=== PATIENT | male | born 1995 | race Caucasian/White ===

== ENCOUNTER 2018-11-09 12:57 | Emergency (ER) | payer BC ==
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
== END 2018-11-09 14:23 | disposition home or self-care (01) ==
LOC: DL.ED 12:57
DX: S01.01XA Laceration without foreign body of scalp, initial encounter (principal); Y04.0XXA Assault by unarmed brawl or fight, initial encounter
CPT/HCPCS: 12001; 99283

== ENCOUNTER 2019-06-27 08:48 | Emergency (ER) | payer BC ==
--- NOTE | 2019-06-27 09:13 | EDM.PDOC ---
ED HPI GENERAL MEDICAL PROBLEM - General Chief Complaint: Abdominal Pain Stated Complaint: ABDOMINAL PAIN Time Seen by Provider: 06/27/19 09:13 Source of Information: Reports: Patient, Old Records, RN, RN Notes Reviewed History Limitations: Reports: No Limitations - History of Present Illness INITIAL COMMENTS - FREE TEXT/NARRATIVE: Pt presents to ER from home by POV with 36 hours duration of generalized upper abdominal pain/pressure with nausea. Pt denies fever, chills, cough, sore throat , vomiting, diarrhea, constipation, dysuria, flank pain, or radiating pain. He admits to testicle pain yesterday, but much less today. Denies acid reflux history. Onset: Gradual Duration: Hour(s): (36) Location: Reports: Abdomen, Other (Testicles) Quality: Reports: Ache, Pressure Severity: Moderate Improves with: Reports: None Worsens with: Reports: None Associated Symptoms: Reports: No Other Symptoms Abdominal Pain Score (Numeric/FACES): 6 - Related Data Allergies Allergy/AdvReac Type Severity Reaction Status Date / Time No Known Allergies Allergy Verified 11/09/18 13:50 Home Meds: Home Meds . [No Known Home Meds] 11/09/18 [History] Past Medical History - Past Health History Medical/Surgical History: Denies Medical/Surgical History HEENT History: Reports: None Cardiovascular History: Reports: None Respiratory History: Reports: None Gastrointestinal History: Reports: Chronic Constipation Other Gastrointestinal History: when he was younger Genitourinary History: Reports: None Musculoskeletal History: Reports: None Neurological History: Reports: None Psychiatric History: Reports: None Endocrine/Metabolic History: Reports: None Hematologic History: Reports: None Oncologic (Cancer) History: Reports: None Dermatologic History: Reports: None - Past Surgical History HEENT Surgical History: Reports: None Cardiovascular Surgical History: Reports: None Respiratory Surgical History: Reports: None GI Surgical History: Reports: None Musculoskeletal Surgical History: Reports: None Social & Family History - Tobacco Use Smoking Status *Q: Never Smoker Second Hand Smoke Exposure: Yes - Caffeine Use Caffeine Use: Reports: Soda - Recreational Drug Use Recreational Drug Use: No - Living Situation & Occupation Living situation: Reports: with Family Occupation: Employed ED ROS GENERAL - Review of Systems Review Of Systems: ROS reveals no pertinent complaints other than HPI. ED EXAM, GI/ABD - Physical Exam Exam: See Below Exam Limited By: No Limitations General Appearance: Alert, WD/WN, No Apparent Distress Eyes: Bilateral: Normal Appearance (No scleral icterus) Nose: Normal Inspection Throat/Mouth: Normal Inspection Head: Atraumatic, Normocephalic Neck: Normal Inspection Respiratory/Chest: No Respiratory Distress, Lungs Clear, Normal Breath Sounds, No Accessory Muscle Use, Chest Non-Tender Cardiovascular: Normal Peripheral Pulses, Regular Rate, Rhythm, No Edema, No Gallop, No JVD, No Murmur, No Rub GI/Abdominal Exam: Normal Bowel Sounds, Soft, No Organomegaly, No Distention, No Abnormal Bruit, No Mass, Pelvis Stable, Tender (Generalized upper abdominal tenderness). No: Guarding, Rigid, Rebound (Male) Exam: No Hernia, Normal Inspection, Circumcised. No: Inguinal Lymphadenopathy, Penile Lesions, Rash, Scrotal Swelling, Scrotum Tenderness (L) , Scrotum Tenderness (R), Suprapubic Fullness, Testicular Mass, Testicular Tenderness (L), Testicular Tenderness (R), Urethral Discharge Rectal (Males) Exam: Deferred Back Exam: Normal Inspection, Full Range of Motion, NT Extremities: Normal Inspection Neurological: Alert, Oriented, CN II-XII Intact, Normal Cognition, Normal Gait, No Motor/Sensory Deficits Psychiatric: Normal Affect, Normal Mood Skin Exam: Warm, Dry, Intact, Normal Color, No Rash Course - Vital Signs Last Recorded V/S: Last Vital Signs Temp 98.5 F 06/27/19 08:54 Pulse 81 06/27/19 08:54 Resp 18 06/27/19 08:54 BP 146/78 H 06/27/19 08:54 Pulse Ox 100 06/27/19 08:54 - Orders/Labs/Meds Orders: Active Orders 24 hr Category Date Time Status Peripheral IV Care [RC] . DIRECTED Care 06/27/19 09:31 Active CHLAMYDIA AND GONORRHEA BY TMA Routine Lab 06/27/19 09:38 Received Sodium Chloride 0.9% [Saline Flush] Med 06/27/19 09:31 Active 10 ml FLUSH ASDIRECTED PRN Peripheral IV Insertion Adult [OM.PC] Stat Oth 06/27/19 09:29 Ordered Medication Orders Sodium Chloride (Saline Flush) 10 ml FLUSH ASDIRECTED PRN PRN Reason: Keep Vein Open Last Admin: 06/27/19 09:50 Dose: 10 ml Labs: Laboratory Tests 06/27/19 06/27/19 06/27/19 Range/Units 09:38 09:38 09:38 WBC 8.0 (5.0-10.0) 10^3/uL RBC 5.57 (4.6-6.2) 10^6/uL Hgb 16.7 (14.0-18.0) g/dL Hct 47.7 (40.0-54.0) % MCV 85.6 (80-100) fL MCH 30.0 (27.0-34.0) pg MCHC 35.0 (33.0-35.0) g/dL Plt Count 306 (150-450) 10^3/uL Neut % (Auto) 72.6 (42.2-75.2) % Lymph % (Auto) 20.2 L (20.5-50.1) % Bracken % (Auto) 6.1 (2-8) % Eos % (Auto) 1.0 (1.0-3.0) % Baso % (Auto) 0.1 (0.0-1.0) % Sodium 137 (135-145) mmol/L Potassium 3.8 (3.6-5.0) mmol/L Chloride 103 (101-111) mmol/L Carbon Dioxide 24.0 (21.0-31.0) mmol/L Anion Gap 13.8 BUN 8 (7-18) mg/dL Creatinine 0.7 (0.6-1.3) mg/dL Est Cr Clr Drug Dosing 177.06 mL/min Estimated GFR (MDRD) > 60 BUN/Creatinine Ratio 11.42 Glucose 99 (74-105) mg/dL Calcium 9.4 (8.4-10.2) mg/dl Total Bilirubin 0.8 (0.2-1.0) mg/dL AST 19 (10-42) IU/L ALT 10 (10-60) IU/L Alkaline Phosphatase 66 (42-121) IU/L Total Protein 8.4 H (6.7-8.2) g/dl Albumin 4.8 (3.2-5.5) g/dl Globulin 3.6 Albumin/Globulin Ratio 1.33 Amylase 72 (28-100) U/L Lipase 48 (22-51) U/L Urine Color Yellow (YELLOW) Urine Appearance Clear (CLEAR) Urine pH 7.5 (5.0-9.0) Ur Specific Otto 1.015 (1.005-1.030) Urine Protein Negative (NEGATIVE) Urine Glucose (UA) Negative (NEGATIVE) Urine Ketones Negative (NEGATIVE) Urine Occult Blood Negative (NEGATIVE) Urine Nitrite Negative (NEGATIVE) Urine Bilirubin Negative (NEGATIVE) Urine Urobilinogen 0.2 (0.2-1.0) mg/dL Ur Leukocyte Esterase Negative (NEGATIVE) Meds: Medications Generic Name Dose Route Start Last Admin Trade Name Freq PRN Reason Stop Dose Admin Sodium Chloride 10 ml 06/27/19 09:31 06/27/19 09:50 Saline Flush FLUSH 10 ml ASDIRECTED PRN Administration Keep Vein Open Discontinued Medications Generic Name Dose Route Start Last Admin Trade Name Freq PRN Reason Stop Dose Admin Al Hydroxide/Mg Hydroxide 30 ml 06/27/19 10:32 Gi Cocktail PO 06/27/19 10:33 ONETIME ONE Famotidine 20 mg 06/27/19 10:32 Pepcid IVPUSH 06/27/19 10:33 ONETIME ONE Ondansetron HCl 4 mg 06/27/19 09:31 06/27/19 09:50 Zofran IV 06/27/19 09:32 4 mg ONETIME ONE Administration Departure - Departure Time of Disposition: 10:48 Disposition: Home, Self-Care 01 Clinical Impression: Testicular/scrotal pain Abdominal pain Qualifiers: Abdominal location: upper abdomen, unspecified Qualified Code(s): R10.10 - Upper abdominal pain, unspecified - Discharge Information *PRESCRIPTION DRUG MONITORING PROGRAM REVIEWED*: No *COPY OF PRESCRIPTION DRUG MONITORING REPORT IN PATIENT TAMIR: No Instructions: Abdominal Pain, Adult, Gastritis, Adult Forms: ED Department Discharge Additional Instructions: Rx: Zofran 4mg Rx: Pepcid 40mg Avoid spicy, fried/greasy/high fat foods, alcohol, mint, chocolate, caffeine, and nicotine. Follow up in clinic in 7 to 10 days for recheck of abdomen and testicular symptoms. - My Orders Last 24 Hours: My Active Orders 06/27/19 09:29 Peripheral IV Insertion Adult [OM.PC] Stat 06/27/19 09:31 Peripheral IV Care [RC] . DIRECTED Sodium Chloride 0.9% [Saline Flush] 10 ml FLUSH ASDIRECTED PRN 06/27/19 09:38 CHLAMYDIA AND GONORRHEA BY TMA Routine - Assessment/Plan Last 24 Hours: My Active Orders 06/27/19 09:29 Peripheral IV Insertion Adult [OM.PC] Stat 06/27/19 09:31 Peripheral IV Care [RC] . DIRECTED Sodium Chloride 0.9% [Saline Flush] 10 ml FLUSH ASDIRECTED PRN 06/27/19 09:38 CHLAMYDIA AND GONORRHEA BY TMA Routine
[2019-06-27] MEDS ORDERED: Ondansetron 4 MG/2 ML SDV IV ONE (09:31)
[2019-06-27] MEDS ORDERED: Sodium Chloride 0.9% 10 ML Syringe FLUSH PRN (09:31)
[2019-06-27 10:10] LABS: ANION GAP 13.8; CHLORIDE,CL 103 mmol/L (101-111); SODIUM,NA 137 mmol/L (135-145)
[2019-06-27] MEDS ORDERED: Famotidine 20 MG/2 ML SDV IVPUSH ONE (10:32)
[2019-06-27] MEDS ORDERED: GI Cocktail Oral Solution 30 ML PO ONE (10:32)
== END 2019-06-27 11:05 | disposition home or self-care (01) ==
LOC: DL.ED 08:48
DX: N50.812 Left testicular pain (principal); N50.811 Right testicular pain; N50.82 Scrotal pain; R10.10 Upper abdominal pain, unspecified
CPT/HCPCS: 36415; 80053; 81003; 82150; 83690; 85025; 87491; 87591; 96374; 96375; 99283; A9270; J2405; J3490

== ENCOUNTER 2021-04-13 20:01 | Emergency (ER) | payer BC, OTHER ==
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
--- NOTE | 2021-04-13 21:49 | CR ---
PROCEDURE INFORMATION: Exam: XR Left Foot Exam date and time: 04/13/2021 9:11 PM Age: 26 years old Clinical indication: Pain; Foot; Left; Additional info: Trauma TECHNIQUE: Imaging protocol: XR Left foot. Views: 1 or 2 views. COMPARISON: No relevant prior studies available. FINDINGS: Bones/joints: Normal. Soft tissues: Normal. IMPRESSION: No acute findings.
--- NOTE | 2021-04-13 21:52 | CR ---
PROCEDURE INFORMATION: Exam: XR Left Finger(s) Exam date and time: 04/13/2021 9:09 PM Age: 26 years old Clinical indication: Pain; Finger(s); Left; Additional info: Trauma TECHNIQUE: Imaging protocol: XR Left fingers. Views: Minimum 2 views. COMPARISON: No relevant prior studies available. FINDINGS: Bones/joints: Acute longitudinal fracture in the distal phalanx of the 2nd digit. No displacement. There is probable extension to the articular surface. Soft tissues: Normal. IMPRESSION: Acute longitudinal fracture in the distal phalanx of the 2nd digit. No displacement. There is probable extension to the articular surface.
== END 2021-04-13 21:32 | disposition home or self-care (01) ==
LOC: DL.ED 20:01
DX: S62.661A Nondisplaced fracture of distal phalanx of left index finger, initial encounter for closed fracture (principal); S93.602A Unspecified sprain of left foot, initial encounter; W27.8XXA Contact with other nonpowered hand tool, initial encounter; Z79.899 Other long term (current) drug therapy
CPT/HCPCS: 11740; 73140-F1; 73620-LT; 99283; 99283-25

== ENCOUNTER 2021-06-14 08:43 | Emergency (ER) | payer BC ==
[2021-06-14] MEDS ORDERED: Ondansetron 4 MG/2 ML SDV IVPUSH ONE (09:09)
--- NOTE | 2021-06-14 09:09 | EDM.PDOC ---
ED HPI GENERAL MEDICAL PROBLEM - General Chief Complaint: Fever Stated Complaint: TROUBLE BREATHING / NEGATIVE COVID Time Seen by Provider: 06/14/21 09:08 Source of Information: Reports: Patient, Family (), RN, RN Notes Reviewed History Limitations: Reports: No Limitations - History of Present Illness INITIAL COMMENTS - FREE TEXT/NARRATIVE: Rianna is a 26 y/o male who presents to the ED via personal vehicle with his for complaints of chills, muscle aches, shortness of breath, and nausea. The patient reports his symptoms began last evening and have progressively wor sened in that time. Additionally, he notes numbness to his face, frequent dry heaving with no emesis, as well as chronic upper back pain. He has taken no medications for his symptoms. The patient denies fever, vision changes, dizziness, cough, sore throat, chest pain/pressure, palpitations, dyspepsia, abdominal pain, dysuria, diarrhea, or constipation. He denies tobacco, alcohol, or recreational drug use. Headache Pain Score (Numeric/FACES): 6 - Related Data Allergies Allergy/AdvReac Type Severity Reaction Status Date / Time No Known Allergies Allergy Verified 04/13/21 20:40 Home Meds: Home Meds . [No Known Home Meds] 04/13/21 [History] Past Medical History - Past Health History Medical/Surgical History: Denies Medical/Surgical History HEENT History: Reports: None Cardiovascular History: Reports: None Respiratory History: Reports: None Gastrointestinal History: Reports: Other (See Below) Other Gastrointestinal History: stomach pain Genitourinary History: Reports: None Musculoskeletal History: Reports: None Neurological History: Reports: None Psychiatric History: Reports: None Endocrine/Metabolic History: Reports: Other (See Below) Other Endocrine/Metabolic History: bilateral gynecomastia Hematologic History: Reports: None Immunologic History: Reports: None Oncologic (Cancer) History: Reports: None Dermatologic History: Reports: None - Infectious Disease History Infectious Disease History: Reports: Chicken Pox - Past Surgical History HEENT Surgical History: Reports: None Cardiovascular Surgical History: Reports: None Respiratory Surgical History: Reports: None GI Surgical History: Reports: None Male Surgical History: Reports: Circumcision Musculoskeletal Surgical History: Reports: None Social & Family History - Family History Family Medical History: No Pertinent Family History - Caffeine Use Caffeine Use: Reports: Soda Caffeine Use Comment: 2 times a week - Living Situation & Occupation Living situation: Reports: with Family Occupation: Employed ED ROS GENERAL - Review of Systems Review Of Systems: Comprehensive ROS is negative, except as noted in HPI. ED EXAM, GENERAL - Physical Exam Exam: See Below Exam Limited By: No Limitations General Appearance: Alert, No Apparent Distress, Anxious Eye Exam: Bilateral Eye: EOMI, Normal Inspection, PERRL (3mm) Head: Atraumatic, Normocephalic Neck: Normal Inspection, Full Range of Motion Respiratory/Chest: No Respiratory Distress, Lungs Clear, Normal Breath Sounds, No Accessory Muscle Use, Chest Non-Tender Cardiovascular: Normal Peripheral Pulses, Regular Rate, Rhythm, No Edema, No Gallop, No JVD, No Murmur, No Rub Peripheral Pulses: 2+: Radial (L), Radial (R) GI/Abdominal: Normal Bowel Sounds, Soft, Non-Tender, No Distention, No Abnormal Bruit, No Mass, Pelvis Stable (Male) Exam: Deferred Rectal (Males) Exam: Deferred Back Exam: Normal Inspection, Full Range of Motion Extremities: Normal Range of Motion, Non-Tender, No Pedal Edema, Normal Capillary Refill, Other (Cramp to first and second digit on right hand) Neurological: Alert, Oriented, CN II-XII Intact, Normal Cognition, Normal Gait, No Motor/Sensory Deficits Psychiatric: Normal Affect, Normal Mood Skin Exam: Warm, Dry, Intact, Normal Color, No Rash. No: Cyanosis, Jaundice, Mottled, Pallor Course - Vital Signs Last Recorded V/S: Last Vital Signs Temp 38.5 F L 06/14/21 13:50 Pulse 77 06/14/21 13:50 Resp 16 06/14/21 13:50 BP 132/63 06/14/21 13:50 Pulse Ox 99 06/14/21 13:50 - Orders/Labs/Meds Labs: Laboratory Tests 06/14/21 06/14/21 06/14/21 Range/Units 08:58 08:58 09:17 WBC 12.2 H (5.0-10.0) 10^3/uL RBC 5.07 (4.6-6.2) 10^6/uL Hgb 15.3 (14.0-18.0) g/dL Hct 43.6 (40.0-54.0) % MCV 86.0 (80-100) fL MCH 30.2 (27.0-34.0) pg MCHC 35.1 H (33.0-35.0) g/dL Plt Count 267 (150-450) 10^3/uL Neut % (Auto) 87.2 H (42.2-75.2) % Lymph % (Auto) 4.7 L (20.5-50.1) % Powell % (Auto) 7.9 (2-8) % Eos % (Auto) 0.1 L (1.0-3.0) % Baso % (Auto) 0.1 (0.0-1.0) % Sodium (136-145) mmol/L Potassium (3.5-5.1) mmol/L Chloride (98-107) mmol/L Carbon Dioxide (21-32) mmol/L Anion Gap (7-13) mEq/L BUN (7-18) mg/dL Creatinine (0.70-1.30) mg/dL Est Cr Clr Drug Dosing mL/min Estimated GFR (MDRD) BUN/Creatinine Ratio (No establ ref range) Glucose (70-99) mg/dL Calcium (8.5-10.1) mg/dL Magnesium (1.8-2.4) mg/dL Total Bilirubin (0.2-1.0) mg/dL AST (15-37) U/L ALT (16-63) U/L Alkaline Phosphatase (46-116) U/L Troponin I High Sens (<=76) pg/mL C-Reactive Protein (0.0-0.9) mg/dL B-Natriuretic Peptide (0-100) pg/ml Total Protein (6.4-8.2) g/dL Albumin (3.4-5.0) g/dL Globulin Albumin/Globulin Ratio TSH, Ultra Sensitive (0.36-3.74) uIU/mL Urine Color (YELLOW) Urine Appearance (CLEAR) Urine pH (5.0-9.0) Ur Specific [place] (1.005-1.030) Urine Protein (NEGATIVE) Urine Glucose (UA) (NEGATIVE) Urine Ketones (NEGATIVE) Urine Occult Blood (NEGATIVE) Urine Nitrite (NEGATIVE) Urine Bilirubin (NEGATIVE) Urine Urobilinogen (0.2-1.0) mg/dL Ur Leukocyte Esterase (NEGATIVE) Urine Opiates Screen Negative (NEGATIVE) Ur Oxycodone Screen Negative (NEGATIVE) Urine Methadone Screen Negative (NEGATIVE) Ur Barbiturates Screen Negative (NEGATIVE) U Tricyclic Antidepress Negative (NEGATIVE) Ur Phencyclidine Scrn Negative (NEGATIVE) Ur Amphetamine Screen Negative (NEGATIVE) U Methamphetamines Scrn Negative (NEGATIVE) Urine MDMA Screen Negative (NEGATIVE) U Benzodiazepines Scrn Negative (NEGATIVE) Urine Cocaine Screen Negative (NEGATIVE) U Marijuana (THC) Screen Negative (NEGATIVE) SARS-CoV-2 RNA (CYNTHIA) Negative (NEGATIVE) 06/14/21 06/14/21 06/14/21 Range/Units 09:17 09:18 09:18 WBC (5.0-10.0) 10^3/uL RBC (4.6-6.2) 10^6/uL Hgb (14.0-18.0) g/dL Hct (40.0-54.0) % MCV (80-100) fL MCH (27.0-34.0) pg MCHC (33.0-35.0) g/dL Plt Count (150-450) 10^3/uL Neut % (Auto) (42.2-75.2) % Lymph % (Auto) (20.5-50.1) % Powell % (Auto) (2-8) % Eos % (Auto) (1.0-3.0) % Baso % (Auto) (0.0-1.0) % Sodium 139 (136-145) mmol/L Potassium 3.3 L (3.5-5.1) mmol/L Chloride 102 (98-107) mmol/L Carbon Dioxide 22 (21-32) mmol/L Anion Gap 18.3 H (7-13) mEq/L BUN 10 (7-18) mg/dL Creatinine 0.83 (0.70-1.30) mg/dL Est Cr Clr Drug Dosing 138.04 mL/min Estimated GFR (MDRD) > 60 BUN/Creatinine Ratio 12.0 (No establ ref range) Glucose 104 H (70-99) mg/dL Calcium 9.1 (8.5-10.1) mg/dL Magnesium 1.5 L (1.8-2.4) mg/dL Total Bilirubin 0.9 (0.2-1.0) mg/dL AST 18 (15-37) U/L ALT 25 (16-63) U/L Alkaline Phosphatase 81 (46-116) U/L Troponin I High Sens < 4 (<=76) pg/mL C-Reactive Protein 2.5 H (0.0-0.9) mg/dL B-Natriuretic Peptide 15 (0-100) pg/ml Total Protein 8.1 (6.4-8.2) g/dL Albumin 4.3 (3.4-5.0) g/dL Globulin 3.8 Albumin/Globulin Ratio 1.1 TSH, Ultra Sensitive 0.77 (0.36-3.74) uIU/mL Urine Color Yellow (YELLOW) Urine Appearance Clear (CLEAR) Urine pH 8.5 (5.0-9.0) Ur Specific [place] 1.025 (1.005-1.030) Urine Protein Negative (NEGATIVE) Urine Glucose (UA) Negative (NEGATIVE) Urine Ketones Negative (NEGATIVE) Urine Occult Blood Negative (NEGATIVE) Urine Nitrite Negative (NEGATIVE) Urine Bilirubin Negative (NEGATIVE) Urine Urobilinogen 0.2 (0.2-1.0) mg/dL Ur Leukocyte Esterase Negative (NEGATIVE) Urine Opiates Screen (NEGATIVE) Ur Oxycodone Screen (NEGATIVE) Urine Methadone Screen (NEGATIVE) Ur Barbiturates Screen (NEGATIVE) U Tricyclic Antidepress (NEGATIVE) Ur Phencyclidine Scrn (NEGATIVE) Ur Amphetamine Screen (NEGATIVE) U Methamphetamines Scrn (NEGATIVE) Urine MDMA Screen (NEGATIVE) U Benzodiazepines Scrn (NEGATIVE) Urine Cocaine Screen (NEGATIVE) U Marijuana (THC) Screen (NEGATIVE) SARS-CoV-2 RNA (CYNTHIA) (NEGATIVE) Meds: Medications Discontinued Medications Generic Name Dose Route Start Last Admin Trade Name Farnaz PRN Reason Stop Dose Admin Acetaminophen 1,000 mg 06/14/21 09:19 06/14/21 09:26 Acetaminophen 500 Mg Tab PO 06/14/21 09:20 1,000 mg ONETIME ONE Administration Magnesium Sulfate 2 gm/ Premix 50 mls @ 25 mls/hr 06/14/21 09:55 06/14/21 1 0:05 IV 06/14/21 11:54 25 mls/hr ONETIME ONE Administration Ibuprofen 800 mg 06/14/21 11:37 06/14/21 12:09 Ibuprofen 800 Mg Tab PO 06/14/21 11:38 800 mg ONETIME ONE Administration Iopamidol 100 ml 06/14/21 11:56 06/14/21 11:57 Iopamidol 612 Mg/Ml 100 Ml Bottle IVPUSH 06/14/21 11:57 100 ml ONETIME ONE Administration Ondansetron HCl 4 mg 06/14/21 09:09 06/14/21 09:21 Ondansetron 4 Mg/2 Ml Sdv IVPUSH 06/14/21 09:10 4 mg ONETIME ONE Administration - Radiology Interpretation Free Text/Narrative:: [facility] Final Radiology Report Call: [phone] assistance Online chat: [email or web address] Name: RIANNA MOSQUERA Age: 26Years M Date: 06/14/2021 SSN: -- : [id number] Study: CR CHEST 1V FRONTAL Requesting Physician: Ary Olmos Images: 1 Addl Studies: Provided Clinical History: Shortness of breath; COVID pending Contrast: Contrast Medium: Contrast Amount: Contrast Method: CONFIDENTIALITY STATEMENT This report is intended only for use by the referring physician, and only in accordance with law. If you received this in error, call [phone]. Page 1 of 1 PROCEDURE INFORMATION: Exam: XR Chest Exam date and time: 06/14/2021 10:40 AM Age: 26 years old Clinical indication: Shortness of breath; Additional info: Shortness of breath; Covid pending TECHNIQUE: Imaging protocol: XR of the chest. Views: 1 view. COMPARISON: No relevant prior studies available. FINDINGS: Lungs: The lungs are normally expanded and clear. Pleural spaces: Normal. Heart/Mediastinum: Normal heart and cardio-mediastinal silhouette. Vasculature: Normal pulmonary vessels and width of the vascular pedicle. Bones/joints: Intact and normally aligned. No suspicious lesion. IMPRESSION: No acute disease or suspicious finding. Thank you for allowing us to participate in the care of your patient. Dictated and Authenticated by: Deni Lynch MD 06/14/2021 11:18 AM Central Time ([place] & [place]) [facility] Final Radiology Report Call: [phone] assistance Online chat: [email or web address] Name: RIANNA MOSQUERA Age: 26Years M Date: 06/14/2021 SSN: -- : [id number] Study: CT ABDOMEN PELVIS W CONT Requesting Physician: Ary Olmos Images: [id number] Addl Studies: Provided Clinical History: Fever; WBC 12; Nausea and dry heaving x2 days Contrast: With Contrast Medium: Isovue Contrast Amount: 100 mL Contrast Method: Intravenous (IV) Page 1 of 2 PROCEDURE INFORMATION: Exam: CT Abdomen And Pelvis With Contrast Exam date and time: 06/14/2021 11:43 AM Age: 26 years old Clinical indication: Fever; Additional info: Fever; Wbc 12; Nausea and dry heaving x2 days TECHNIQUE: Imaging protocol: Computed tomography of the abdomen and pelvis with contrast. Radiation optimization: All CT scans at this facility use at least one of these dose optimization techniques: automated exposure control; mA and/or kV adjustment per patient size (includes targeted exams where dose is matched to clinical indication); or iterative reconstruction. Contrast material: ISOVUE; Contrast volume: 100 ml; Contrast route: INTRAVENOUS (IV); COMPARISON: CR Chest 1V Frontal 06/14/2021 10:40 AM FINDINGS: Limitations: None. Liver: Normal. Gallbladder and bile ducts: Normal. Pancreas: Normal. Spleen: Normal. Adrenal glands: Normal. Kidneys and ureters: Normal. Stomach and bowel: Rare scattered colonic diverticula without acute diverticulitis. Normal small bowel and stomach. Appendix: Normal. Intraperitoneal space: No ascites, pneumoperitoneum or peritoneal lesion. Vasculature: Normal. Lymph nodes: None enlarged or otherwise suspicious. Urinary bladder: Normal. Reproductive: Normal prostate and seminal vesicles. Bones/joints: No acute fracture or suspicious osseous lesion. Soft tissues: No mass or abdominal hernia. IMPRESSION: 1. No acute disease or suspicious finding. 2. Incidentally noted mild colonic diverticulosis. A normal appendix is identified. Thank you for allowing us to participate in the care of your patient. Dictated and Authenticated by: Deni Lynch MD 06/14/2021 11:59 AM Central Time ([place] & [place]) - Re-Assessments/Exams Free Text/Narrative Re-Assessment/Exam: 06/14/21 CXR obtained while labs pending. COVID test sent. Zofran 4mg IVP administered. CT abdomen/pelvis obtained given nausea and back pain. WBC 12 Temperature 100.8 Will administer acetaminophen 1gm and Mag Sulfate 2gm. Findings of examination, lab work, and imaging reviewed with patient and . Patient instructed to follow up with GI for ongoing abdominal symptoms. Supportive cares discussed. Patient instructed to follow up with primary care provider regarding todays visit. Red flag signs and symptoms which would warrant immediate reevaluation reviewed. Patient verbalized understanding and agreement with the plan of care. Departure - Departure Time of Disposition: 13:50 Disposition: Home, Self-Care 01 Condition: Good Clinical Impression: Hypomagnesemia, Diverticulosis, Nausea without vomiting, Bilateral hip pain Fever Qualifiers: Fever type: unspecified Qualified Code(s): R50.9 - Fever, unspecified Back pain Qualifiers: Back pain location: thoracic back pain Chronicity: chronic Back pain laterality: midline Qualified Code(s): M54.6 - Pain in thoracic spine - Discharge Information *PRESCRIPTION DRUG MONITORING PROGRAM REVIEWED*: Not Applicable *COPY OF PRESCRIPTION DRUG MONITORING REPORT IN PATIENT TAMIR: Not Applicable Instructions: Fever, Adult, Hypomagnesemia, Musculoskeletal Pain Referrals: PCP,None [Ordering Only Provider] - Forms: ED Department Discharge Additional Instructions: Rx: Zofran ODT 4mg (#12) Rx: Ketorolac 10mg (#12) 1.) Drink small frequent sips of water to stay hydrated but avoid nausea. 2.) Eat small, snack-sized meals to avoid nausea. Eat a bland diet, avoiding spicy, greasy, high-fat foods. 3.) Follow up with gastroenterology regarding daily abdominal pain, consider a second opinion. 4.) Follow up with your primary care provider regarding today's visit. 5.) You may take acetaminophen (Tylenol) 650-1000mg every six hours while muscle aches and fever persist. Do not take ibuprofen while you are taking Ketorolac. Sepsis Event Note (ED) - Focused Exam Vital Signs: Vital Signs Temp Temp Pulse Resp BP Pulse Ox 06/14/21 13:50 38.5 F L 77 16 132/63 99 06/14/21 09:26 100.5 F 06/14/21 09:02 100.5 F 115 H 28 H 154/86 H 100
[2021-06-14] MEDS ORDERED: Acetaminophen 500 MG Tab PO ONE (09:19)
[2021-06-14 09:29] LABS: AMPHETAMINES,URINE NEGATIVE (NEGATIVE); BARBITURATES,URINE NEGATIVE (NEGATIVE); BENZODIAZEPINE,URINE NEGATIVE (NEGATIVE); MDMA (ECSTASY), URINE NEGATIVE (NEGATIVE); METHADONE,URINE NEGATIVE (NEGATIVE); METHAMPHETAMINES,URINE NEGATIVE (NEGATIVE); OPIATES,URINE NEGATIVE (NEGATIVE); OXYCODONE,URINE NEGATIVE (NEGATIVE); PHENCYCLIDINE,URINE NEGATIVE (NEGATIVE); TCA,URINE NEGATIVE (NEGATIVE)
[2021-06-14 09:46] LABS: ANION GAP 18.3 mEq/L (7-13); CHLORIDE,CL 102 mmol/L (98-107); SODIUM,NA 139 mmol/L (136-145)
[2021-06-14] MEDS ORDERED: Magnesium Sulfate/Water 2 GM in Premix Bag 1 BAG IV ONE (09:55)
--- NOTE | 2021-06-14 11:19 | CR ---
PROCEDURE INFORMATION: Exam: XR Chest Exam date and time: 06/14/2021 10:40 AM Age: 26 years old Clinical indication: Shortness of breath; Additional info: Shortness of breath; Covid pending TECHNIQUE: Imaging protocol: XR of the chest. Views: 1 view. COMPARISON: No relevant prior studies available. FINDINGS: Lungs: The lungs are normally expanded and clear. Pleural spaces: Normal. Heart/Mediastinum: Normal heart and cardio-mediastinal silhouette. Vasculature: Normal pulmonary vessels and width of the vascular pedicle. Bones/joints: Intact and normally aligned. No suspicious lesion. IMPRESSION: No acute disease or suspicious finding.
[2021-06-14] MEDS ORDERED: Ibuprofen 800 MG Tab PO ONE (11:37)
[2021-06-14] MEDS ORDERED: Iopamidol 612 MG/ML 100 ML Bottle IVPUSH ONE (11:56)
--- NOTE | 2021-06-14 11:59 | CT ---
PROCEDURE INFORMATION: Exam: CT Abdomen And Pelvis With Contrast Exam date and time: 06/14/2021 11:43 AM Age: 26 years old Clinical indication: Fever; Additional info: Fever; Wbc 12; Nausea and dry heaving x2 days TECHNIQUE: Imaging protocol: Computed tomography of the abdomen and pelvis with contrast. Radiation optimization: All CT scans at this facility use at least one of these dose optimization techniques: automated exposure control; mA and/or kV adjustment per patient size (includes targeted exams where dose is matched to clinical indication); or iterative reconstruction. Contrast material: ISOVUE; Contrast volume: 100 ml; Contrast route: INTRAVENOUS (IV); COMPARISON: CR Chest 1V Frontal 06/14/2021 10:40 AM FINDINGS: Limitations: None. Liver: Normal. Gallbladder and bile ducts: Normal. Pancreas: Normal. Spleen: Normal. Adrenal glands: Normal. Kidneys and ureters: Normal. Stomach and bowel: Rare scattered colonic diverticula without acute diverticulitis. Normal small bowel and stomach. Appendix: Normal. Intraperitoneal space: No ascites, pneumoperitoneum or peritoneal lesion. Vasculature: Normal. Lymph nodes: None enlarged or otherwise suspicious. Urinary bladder: Normal. Reproductive: Normal prostate and seminal vesicles. Bones/joints: No acute fracture or suspicious osseous lesion. Soft tissues: No mass or abdominal hernia. IMPRESSION: 1. No acute disease or suspicious finding. 2. Incidentally noted mild colonic diverticulosis. A normal appendix is identified.
== END 2021-06-14 13:59 | disposition home or self-care (01) ==
LOC: DL.ED 08:43
DX: K57.90 Diverticulosis of intestine, part unspecified, without perforation or abscess without bleeding (principal); M54.6 Pain in thoracic spine; R11.0 Nausea; M25.551 Pain in right hip; M25.552 Pain in left hip; E83.42 Hypomagnesemia; Z20.822 Contact with and (suspected) exposure to COVID-19
CPT/HCPCS: 36415; 71045; 74177; 80053; 80305-QW; 81003; 83735; 83880; 84443; 84484; 85025; 86140; 93005; 96374; 96375; 99285-25; A9270-GY; J2405; J3475; Q9967; U0002